=== PATIENT | female | born 1955 | race Caucasian/White ===

== ENCOUNTER 2022-07-20 09:00 | Outpatient (CLI) | payer MEDICARE, BC, SELFPAY ==
[2022-07-20 13:34] LABS: Chloride* 100 mmol/L (96-114); Potassium* 4.8 mmol/L (3.6-5.1); Sodium* 135 mmol/L (135-149)
[2022-07-20 13:35] LABS: Basophils Absolute Auto 0.06 K/uL (0.00-0.30); Basophils Percent Auto 1.1 % (0.0-3.0); Eosinophils Percent Auto 3.7 % (0.0-7.0); Hemoglobin* 14.1 gm/dL (12.0-16.0); Lymphocytes Absolute Auto 1.94 K/uL (0.90-2.90); Lymphocytes Percent Auto 35.7 % (20-44); Mean Corpuscular HGB Conc 33 gm/dL (32-36); Mean Corpuscular Hemoglobin 29 pg (26-34); Mean Corpuscular Volume 89 fL (80-100); Monocytes Percent Auto 13.3 % (0.0-11.0); Neutrophils Absolute Auto 2.51 K/uL (1.7-7.0); Neutrophils Percent Auto 46.2 % (42.0-72.0); Platelet Count* 207 K/uL (140-440); RDW Coefficient of Variation % 12.8 % (11.5-15.5); Red Blood Count 4.84 m/uL (4.00-5.20); White Blood Count* 5.43 K/uL (4.50-11.00)
[2022-07-20 13:37] LABS: Blood Urea Nitrogen* 18 mg/dL (7-30); Carbon Dioxide* 31 mmol/L (20-32); Cholesterol* 281 mg/dL (90-199); Creatinine* 0.6 mg/dL (0.5-1.5); Estimated Glomerular Filt Rate 98 ml/min; Glucose* 97 mg/dL (60-115)
[2022-07-20 13:38] LABS: Calcium* 9.5 mg/dL (8.4-10.6); HDL Cholesterol* 82 mg/dL (>=50); LDL Cholesterol Calculated 177 mg/dL (<100); Triglycerides* 110 mg/dL (40-149)
[2022-07-20 13:44] LABS: Slide Review Reflex No
== END 2022-07-20 09:01 | disposition home or self-care (01) ==
PROVIDERS: PCP Nurse Practitioner Family; Visit Provider Nurse Practitioner Family
DX: Z01.818 Encounter for other preprocedural examination (principal); E78.5 Hyperlipidemia, unspecified
CPT/HCPCS: 80048; 80061; 85025

== ENCOUNTER 2023-05-17 10:52 | Outpatient (CLI) | payer MEDICARE, BC, SELFPAY ==
--- OUTSIDE RECORDS SUMMARY | 2023-05-17 11:03 | XMS_ITS | Clinical Summary ---
Author Name Unknown Organization [facility] Address [address] Care Team Providers Care Insurance Office Manager Name Role Phone Michelle Kolb NP Primary Care Provider [phone] Allergies Active Allergy Reactions Criticality Noted Date Comments [employer] [place] *Unknown - Follow up needed 08/04/19 23 Flaxseed *Unknown - Follow up needed 08/04/19 23 Shrimp *Unknown - Follow up needed 08/04/19 23 Tree Pollen-Red Maple *Unknown - Follow up needed 08/03/2022 Medications Medication Sig Dispensed Refills Start Date End Date Status SUMAtriptan (IMITREX) 100 mg tablet Take 100 mg by mouth every 2 hours if needed for Migraine. Max dose: 200mg per 24 hrs. 0 Active CHOLECALCIFEROL, VITAMIN D3, (VITAMIN D3 ORAL) Take by mouth. Weekly , PRN wintertime 0 Active MULTIVITAMIN ORAL Take by mouth. PO daily 0 Active VITAMIN E ACETATE (VITAMIN E ORAL) Take by mouth. PO daily 0 Active ascorbic acid, vitamin C, (VITAMIN C) 1,000 mg tablet Take 1 Tab by mouth. 0 05/06/2010 Acti ve b complex vitamins (VITAMIN B COMPLEX) capsule Take 1 Tab by mouth. 0 05/07/2010 Active HYDROcodone-acetam inophen (NORCO) 5-325 mg per tabletIndications: Melanoma of face (HC),Dysplastic nevus of face Take 1-2 Tablets by mouth every 4 hours if needed for Pain. Max acetaminophen dose: 4000 mg in 24 hrs. 15 Tablet 0 08/04/2022 Active Active Problems Problem Noted Date Diagnosed Date Melanoma in situ of cheek 10/12/2022 Melanoma of face 08/04/2022 Dysplastic nevus of face 08/04/2022 Social History Tobacco Use Types Packs/Day Years Used Date Smoking Tobacco: Never Smokeless Tobacco: Never Alcohol Use Standard Drinks/Week Comments Yes 0 (1 standard drink = 0.6 oz pur e alcohol) Sex and Gender Information Value Date Recorded Sex Assigned at Not on file Gender Identity Not on file Sexual Orientation Not on file Obstetrics History Last Filed Vital Signs Vital Sign Reading Time Taken Comments Blood Pressure 151/91 10/12/2022 9:30 AM CDT Pulse 63 10/12/2022 9:30 AM CDT Temperature 36.1 ??C (97 ??F) 10/12/2022 9:30 AM CDT Respiratory Rate 20 10/12/2022 9:30 AM CDT Oxygen Saturation 95% 10/12/2022 9:30 AM CDT Inhaled Oxygen Concentration - - Weight 60.9 kg (134 lb 3.2 oz) 10/12/2022 6:23 A M CDT Height 165.1 cm (5' 5) 10/12/2022 6:23 AM CDT Body Mass Index 22.33 10/12/2022 6:23 AM CDT Plan of Treatment Health Maintenance Due Date Last Done Comments Tdap 1965 Depression screening for age 12+ 1966 Hepatitis C screening for ag e 18-79 1972 Tetanus booster 1974 Colonoscopy through age 75 1999 Lipids for age 45-75 1999 Mammogram for age 45-75 1999 Zoster (shingles) series for age 50+ (1 of 2) 2004 DEXA/DXA scan for age 65+ 2019 Pneumococcal series for age 65+ (1 of 1 - PCV) 2019 BMI (ht and wt on same day) for age 18+ 04/11/2020 04/11/2019 COVID-19 vaccine series (2022- season) 2022 01/15/2022, 07/21/2021, 02/01/2021, Additional history exists Influenza for age 65+ 12/03/2022 Advance Directives Latest Code Status on File Code Status Date Activated Date Inactivated Comments Full Code 10/12/2022 5:51 AM 10/12/2022 1:36 PM Question Answer Comments Code Status Discussion: Other not disc ussed Code Status History Code Status Date Activated Date Inactivated Comments Full Code 08/04/2022 8:25 AM 08/04/2022 6:39 PM Question Answer Comments Code Status Discussion: Other not disc ussed Full Code 05/26/2015 7:45 AM 05/26/2015 12:51 PM Care Teams Insurance Office Manager Relationship Specialty Start Date End Date Michelle Kolb NP [address] [place] [address] PCP - General Emergency Medicine 07/15/22
== END 2023-05-17 10:53 | disposition home or self-care (01) ==
PROVIDERS: PCP Nurse Practitioner Family; Visit Provider Nurse Practitioner Family
DX: Z00.00 Encounter for general adult medical examination without abnormal findings (principal); E78.5 Hyperlipidemia, unspecified; M85.80 Other specified disorders of bone density and structure, unspecified site; Z13.0 Encounter for screening for diseases of the blood and blood-forming organs and certain disorders involving the immune mechanism; Z13.228 Encounter for screening for other metabolic disorders
CPT/HCPCS: 80053; 80061; 85025

== ENCOUNTER 2023-08-10 12:44 | Outpatient (CLI) | payer MEDICARE, BC, SELFPAY ==
--- OUTSIDE RECORDS SUMMARY | 2023-08-10 12:48 | XMS_ITS | Clinical Summary ---
Author Name Unknown Organization [facility] Address [place], [place] [address] Care Team Providers Care Temperer Name Role Phone Michelle Kolb NP Primary Care Provider [phone]- [phone] Allergies Active Allergy Reactions Criticality Noted Date Comments [place] *Unknown - Follow up needed 08/04/19 23 [...] Migraine. Max dose: 200mg per 24 hrs. Active CHOLECALCIFEROL, VITAMIN D3, (VITAMIN D3 ORAL) Take by mouth. Weekly , PRN wintertime Active MULTIVITAMIN ORAL Take by mouth. PO daily Active VITAMIN E ACETATE (VITAMIN E ORAL) Take by mouth. PO daily Active ascorbic acid, vitamin C, (VITAMIN C) 1,000 mg tablet Take 1 Tab by mouth. 05/06/2010 Acti ve b complex vitamins (VITAMIN B COMPLEX) capsule Take 1 Tab by mouth. 05/07/2010 Active HYDROcodone-acetam inophen (NORCO) 5-325 mg per tabletIndications: Melanoma of face (HC),Dysplastic nevus of face Take 1-2 Tablets by mouth every 4 hours if needed for Pain. Max acetaminophen dose: 4000 mg in 24 hrs. 15 Tablet 08/04/2022 Active Active Problems Problem Noted Date [...] age 18+ 04/11/2020 04/11/2019 COVID-19 vaccine series ( - 2022- season) 2022 01/15/2022, 07/21/2021, 02/01/2021, Additional history exists Influenza for age 65+ 12/04/2023 Advance Directives * Full Code (Latest Code Status on File) Date Activated Date Inactivated Comments 10/12/2022 5:51 AM 10/12/2022 1:36 PM Question Answer Comments Code Status Discussion: Other not disc ussed * Full Code Date Activated Date Inactivated Comments 08/04/2022 8:25 AM 08/04/2022 6:39 PM Question Answer Comments Code Status Discussion: Other not disc ussed * Full Code Date Activated Date Inactivated Comments 05/26/2015 7:45 AM 05/26/2015 12:51 PM Care Teams Temperer Relationship Specialty Start Date End Date Michelle Kolb SMUTTER [address] [place] [address] PCP - General Emergency Medicine 07/15/22
--- NOTE | 2023-08-10 13:00 | MM_ITS ---
Patient: AUBREY SIMONS Facility:?[facility] Patient ID:?[id number] Site Patient ID:?[id number] Site :?[id number] Study:?XRay-Breast Bilateral 3D W/CAD-08/10/2023 1:07:48 PM Ordering Physician:Michelle Alexander Final Report: BILATERAL SCREENING MAMMOGRAM WITH COMPUTER-AIDED DETECTION AND TOMOSYNTHESIS TECHNIQUE: CC and MLO views were obtained. These mammographic images have been obtained using full-field digital technique. These mammographic images were interpreted with the benefit of computer-aided detection. Breast Tomosynthesis was used in this interpretation. COMPARISON FILM: 07/30/21, 07/15/20. FINDINGS: There are scattered areas of fibroglandular density. IMPRESSION: There is no radiographic evidence for malignancy. ASSESSMENT: BI-RADS Category 1: Negative RECOMMENDATION: Routine screening mammogram in 1 year. A lay language report of this examination will be provided to the patient. Richard West M.D. Diagnostic Radiologist [email or web address] SHLOMO/sp R& Transcribed: 7:53 p.m. SP/Dictated by: Richard West MD @ 08/11/2023 8:45:00 AM Signed by:?Richard West MD @08/11/2023 8:30:00 PM (Electronic Signature)
--- NOTE | 2023-08-10 13:30 | XR_ITS ---
Patient: AUBREY SIMONS Facility:?[facility] Patient ID:?[id number] Site Patient ID:?[id number] Site :?[id number] Study:?DEXA-Bone Density -08/10/2023 2:03:41 PM Ordering Physician:CONSTANCE Final Report: DXA BONE MINERAL DENSITY STUDY Current height (in): 65.5. Weight (lb): 135.0. Menopause age: 54. Ethnicity: White. Reason for exam: Osteopenia. 1. Have you had a previous hip or vertebral fracture? No. 2. Have you had any fractures during your adult life which did not result from significant trauma (e.g., auto accident)? o. 3. Did either of your parents have a hip fracture? No. 4. Do you smoke? No. 5. Have you ever taken Glucocorticoids? No. 6. Do you have rheumatoid arthritis? No. 7. Do you have secondary osteoporosis? No. 8. Do you drink 3 or more alcoholic drinks per day? No. 9. Are you being treated for osteoporosis? No. 10. Have you ever taken any of the following medications: Actonel, Evista, Fosamax, Miacalcin, Reclast, Boniva, Forteo, HRT (i.e. estrogen/hormone therapy), Protelos, Prolia, Vitamin D, Calcium, other ? please specify. ANSWER: Yes, calcium. 11. Do you have any of the following medical conditions: Anorexia or bulimia, asthma or emphysema, end stage renal disease, hyperparathyroidism, any seizure disorders, cancer, inflammatory bowel diseases, hysterectomy, other ? please specify. ANSWER: Yes, cancer. 12. What was your maximum height (inches)? 66.5. 13. Do you perform weight bearing exercise regularly? Yes. 14. Do you regularly consume dairy products? No. 15. Do you drink caffeinated beverages? Yes. 16. At what age did your period start? 12. 17. Are you premenopausal? No. 18. How many full-term pregnancies have you had? 3. 19. Have you ever missed your period for more than 6 months in a row (not including or menopause)? No. TECHNIQUE: Bone mineral density study was performed using the [employer]. FINDINGS: The results of the study expressed as bone mineral density (BMD) are as follows: Lumbar spine L1 to L4: BMD: 1.001 g/cm2. T-score: -0.4. Z-score: 1.6 Neck Left: BMD: 0.634 g/cm2. T-score: -1.9. Z-score: -0.2 Right: BMD: 0.636 g/cm2. T-score: -1.9. Z-score: -0.2 Total Left: BMD: 0.788 g/cm2. T-score: -1.3. Z-score: 0.2 Right: BMD: 0.754 g/cm2. T-score: -1.5. Z-score: -0.1 IMPRESSION: Normal bone density. FRAX 10-year Fracture Risk Major Osteoporotic Fracture: 11 percent Hip Fracture: 2.0 percent Reported Risk Factors: [place] () Neck BMD = 0.634, BMI = 22.1 Dino Alvarez M.D. Diagnostic Radiologist [email or web address] FOX/santo: D& Transcribed: 3:33 pm DW/Dictated by: Dino Alvarez MD @ 08/10/2023 2:58:00 PM Signed by:Hitesh Alvarez MD @08/11/2023 7:38:13 AM (Electronic Signature)
== END 2023-08-10 12:45 | disposition home or self-care (01) ==
LOC: MAMMO 12:46
PROVIDERS: PCP Nurse Practitioner Family; Visit Provider Nurse Practitioner Family
DX: Z12.31 Encounter for screening mammogram for malignant neoplasm of breast (principal); M85.80 Other specified disorders of bone density and structure, unspecified site; Z78.0 Asymptomatic menopausal state
CPT/HCPCS: 77063; 77067; 77080

== ENCOUNTER 2023-09-24 15:36 | Emergency (ER) | payer MEDICARE, BC, SELFPAY ==
[2023-09-24 15:38] VITALS: BP 148/85; PULSE 71; RESP 16; TEMP 36.3; O2SAT 96; BMI 22.1
--- NOTE | 2023-09-24 15:52 | CRLHL7_ITS ---
For Patients: As a result of the Century Cures Act, medical imaging exams and procedure reports are released immediately into your electronic medical record. You may view this report before your referring provider. If you have questions, please contact your health care provider. INDICATION: Fall. TECHNIQUE: CT of the head without contrast. Coronal and sagittal reformats are included. COMPARISON: None. FINDINGS: No acute intracranial hemorrhage. No mass effect or midline shift. No hydrocephalus or extra-axial collections. Scattered white matter hypoattenuation, typical for chronic microvascular ischemic change. No acute osseous abnormalities. Mastoid air cells and paranasal sinuses are clear. Normal soft tissues. IMPRESSION: IMPRESSION: 1. No acute intracranial abnormalities. Please note that all CT scans at this facility use dose modulation, iterative reconstruction, and/or weight-based dosing when appropriate to reduce radiation dose to as low as reasonably achievable. Dictated by Joaquin Randle MD @ 09/24/2023 4:18:46 PM (Electronically Signed)
--- NOTE | 2023-09-24 15:52 | CRLHL7_ITS ---
For Patients: As a result of the Cures Act, medical imaging exams and procedure reports are released immediately into your electronic medical record. You may view this report before your referring provider. If you have questions, please contact your health care provider. INDICATION: Fall. TECHNIQUE: CT of the cervical spine without contrast. Coronal and sagittal reformats are included. COMPARISON: None. FINDINGS: No acute fracture or traumatic malalignment of the cervical spine. Craniocervical junction alignment is maintained. Slight cervical kyphosis. Grade 1 anterolisthesis C4-5. Moderate disc degeneration C5-6 and C6-7. Mild disc degeneration elsewhere. Scattered uncovertebral/facet arthrosis with low-grade neural foraminal stenosis. No high grade spinal canal stenosis as far as visualized. Imaged intracranial structures, cervical and paraspinous soft tissues are normal in appearance. The visualized pulmonary apices are clear. IMPRESSION: 1. No acute fracture or traumatic malalignment of the cervical spine. Please note that all CT scans at this facility use dose modulation, iterative reconstruction, and/or weight-based dosing when appropriate to reduce radiation dose to as low as reasonably achievable. Dictated by Joaquin Randle MD @ 09/24/2023 4:23:49 PM (Electronically Signed)
--- OUTSIDE RECORDS SUMMARY | 2023-09-24 16:17 | XMS_ITS | Clinical Summary ---
Author Organization [email or web address] Address [place], [place] [address] Care Team Providers Care Canadian Bacon Tier Name Role Phone Michelle Kolb SPINNER OPERATOR Primary Care Provider [phone] Allergies Active Allergy Reactions Criticality Noted Date Comments [place] *Unknown - Follow up needed 08/04/19 23 [...] 7:45 AM 05/26/2015 12:51 PM Care Teams Canadian Bacon Tier Relationship Specialty Start Date End Date Michelle Kolb SPINNER OPERATOR [address] [place] [address] PCP - General Emergency Medicine 07/15/22
--- OUTSIDE RECORDS SUMMARY | 2023-09-24 16:17 | XMS_ITS | Continuity of Care Document ---
Author Organization [facility] Address [address] [address] [place] [address] Phone Care Team Providers Care Cash Crop Farmer Name Role Phone Jeison Garsia DO Unavailable Unavailable Allergies, Adverse Reactions, Alerts Substance Reaction Status Criticality No Known Drug Allergies Active No I nformation Medications Medication Instructions Dosage Effective Dates (start - stop) Status Comments sumatriptan 100 mg tablet take 1 tablet by oral route after onset of migraine; may repeat after 2 hours if headache returns,not to exceed 200mg in 24hrs as needed 100 MG - Active Procedures Procedure Date Stool Kits Given Offic/outpt E&m New Mod-hi Routine Serum Collection Advance Directives Directive Yes / No Effective Date File Name No Information Encounters Encounter Description Practice Location Reason(s) For Visit Diagnoses Date Provider Providers Copied on Encounter [facility], [address] [address], [place], [place], [id number], [place] [phone] [facility] No Information 3 Ady Walter. [address], [id number], [place]. tel:[phone] [facility], [address] [address], [place], [place], [id number], [place] tel:[phone] [facility] No Information 2 Fran Duffy. [address] [facility], [address], [id number], [place]. tel:[phone] Referring Provider: Referral Self, USE FOR SELF REFERRALS. Offic/outpt E&m New Mod-hi [facility], [address] [address], [place], [place], [id number], tel:[phone] [facility] GI Symptoms or Concerns (chief complaint) Diarrhea, unspecified type Sep- 2 Fran Duffy. [address] [facility], [facility] [address], [place], [id number], . tel:[phone] Referring Provider: Michelle Kolb NP M, [address] [place], [address]. tel:[phone] [facility], [address] [address], [place], [place], [id number], [place] tel:[phone] [facility] No Information 2 Lazara Avelar. [address] [facility], [facility] [address], [place], [id number], . tel:[phone] Family History Family Member Type Diagnosis Age At Onset Brother Problem Alive and well Father Problem COPD Father Problem Lung cancer Sister Problem Alive and well Immunizations Vaccine Date Status Comments SARS-COV-2 (COVID-19) vaccin e, mRNA, spike protein, LNP, preservative free, 100 mcg/0.5mL dose or 50 mcg/0.25mL dose administered Note: [facility] bi -directional interface ; Source: Other Registry zoster vaccine recombinant administered N ote: [facility] bi-directional interface ; Source: Other Registry SARS-COV-2 (COVID-19) vaccin e, mRNA, spike protein, LNP, preservative free, 100 mcg/0.5mL dose or 50 mcg/0.25mL dose administered Note: [facility] bi -directional interface ; Source: Other Registry influenza, high-dose seasona l, quadrivalent, .7mL dose, preservative free administered Note: [facility] bi-direct ional interface ; Source: Other Registry tetanus toxoid, reduced diphtheria toxoid, and acellular pertussis vaccine, adsorbed administered Note: [facility] b i-directional interface ; Source: Other Registry Pneumovax 23 administered Note: [facility] bi-d irectional interface ; Source: Other Registry SARS-COV-2 (COVID-19) vaccin e, mRNA, spike protein, LNP, preservative free, 100 mcg/0.5mL dose or 50 mcg/0.25mL dose administered Note: [facility] bi -directional interface ; Source: Other Registry influenza, high dose seasona l, preservative-free administered Note: [facility] bi-direct ional interface ; Source: Other Registry Afluria Qd administered Note: [facility] bi-directional interface ; Source: Other Registry Afluria Qd administered Note: [facility] bi-directional interface ; Source: Other Registry Afluria Qd administered Note: [facility] bi-directional interface ; Source: Other Registry Afluria Qd administered Note: [facility] bi-directional interface ; Source: Other Registry Influenza administered Note: [facility] bi-d irectional interface ; Source: Other Registry influenza virus vaccine, unspecified formulation administered Note: [facility] bi-di rectional interface ; Source: Other Registry influenza virus vaccine, unspecified formulation administered Note: [facility] bi-di rectional interface ; Source: Other Registry Influenza, seasonal, injectable administe red Note: [facility] bi- directional interface ; Source: Other Registry Influenza, seasonal, injectable administe red Note: [facility] bi- directional interface ; Source: Other Registry typhoid vaccine, parenteral, other than acetone-killed, dried administered Note: [facility] bi- directional interface ; Source: Other Registry Influenza, seasonal, injectable administe red Note: [facility] bi- directional interface ; Source: Other Registry tetanus toxoid, reduced diphtheria toxoid, and acellular pertussis vaccine, adsorbed administered Note: [facility] b i-directional interface ; Source: Other Registry Influenza, seasonal, injectable administe red Note: [facility] bi- directional interface ; Source: Other Registry Influenza, seasonal, injecta ble, preservative free administered Note: [facility] bi-direct ional interface ; Source: Other Registry Influenza, seasonal, injectable administe red Note: [facility] bi- directional interface ; Source: Other Registry typhoid vaccine, parenteral, other than acetone-killed, dried administered Note: [facility] bi- directional interface ; Source: Other Registry hepatitis B vaccine, unspeci fied formulation administered Note: [facility] bi-direct ional interface ; Source: Other Registry Havrix administered Note: [facility] bi-d irectional interface ; Source: Other Registry hepatitis B vaccine, unspeci fied formulation administered Note: [facility] bi-direct ional interface ; Source: Other Registry hepatitis B vaccine, unspeci fied formulation administered Note: [facility] bi-direct ional interface ; Source: Other Registry poliovirus vaccine, inactivated administe red Note: [facility] bi- directional interface ; Source: Other Registry Havrix administered Note: [facility] bi-d irectional interface ; Source: Other Registry Payers Payer name Insurance type Covered constitution party ID Authoriza tion(s) No Information Social History Type Description Quantity Date Captured Comments Alcohol Use Details Unknown Caffeine Use Details Unknown Tobacco Use Status No Information Smoking Status No Information Sex Female Chief Complaint And Reason For Visit No Information Reason For Referral Reason For Referral No Information Plan Of Treatment Date Type Action Status Referral Ordered: Colonoscopy Appointment date/timeframe: First Available ordered History Of Present Illness Encounter Date Complaint History Of Prese nt Illness GI Symptoms or Concerns This is a 66-year-old female, who is seen today at the request of Michelle Kolb NP for the evaluation of a change in her bowel habits with chronic diarrhea since July.When she was in [place] in mid July, she began to have some looser bowel movements. About one week later, she began having diarrhea, cramping/abdominal discomfort, urgency, and even some episodes of incontinence. She can have 1-3 stools per day. After she was having some nocturnal symptoms. She gets cramping now every once in a while. She has lost about 8 pounds. There is no nausea or vomiting. She was using Excedrin for migraine headaches up until she began to feel unwell.No ill contacts. No recent antibiotic use. No new medications.PAST MEDICAL HISTORYShe has a history of eosinophilic esophagitis diagnosed about 10 years ago. She has had dilation in the past. This is related to shrimp, flaxseed, almonds, maple tree pollen, and symptoms are worsened in the spring. She does not take any pharm Functional Status Date Functional Assessmen t No Information Instructions Date Instruction Additional Infor frannie -Basic labs today, c eliac panel, thyroid panel -Stool tests to rule out infections -Colonoscopy if the above workup is normal to rule out colitis such as inflammatory colitis or microscopic colitis-It is OK to use a small amount of Imodium or pepto-bismol as needed for symptom management. You can continue probiotics and digestive enzymes for now if you think these are helping -Make a follow up visit after the above workup is complete to review findings/discuss next steps Related to Diarrhea, unspecified type Assessments Type Assessment Date No Information Patient Care Teams Name Effective Dates (start - stop) Status Members No Information
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
== END 2023-09-24 16:54 | disposition home or self-care (01) ==
PROVIDERS: Emergency Provider Student in an Organized Health Care Education/Training Program; PCP Nurse Practitioner Family
DX: S09.90XA Unspecified injury of head, initial encounter (principal); W18.30XA Fall on same level, unspecified, initial encounter
CPT/HCPCS: 70450; 72125; 99282; 99283; 99285

== ENCOUNTER 2023-10-18 09:00 | Outpatient (CLI) | payer MEDICARE, BC, SELFPAY | END 2023-10-18 09:01 | disposition home or self-care (01) | PROVIDERS: PCP Nurse Practitioner Family; Visit Provider Nurse Practitioner Family | DX: E78.5 Hyperlipidemia, unspecified (principal) | CPT/HCPCS: 80061; 80076 ==

== ENCOUNTER 2024-07-31 09:11 | Outpatient (CLI) | payer MEDICARE, BC, SELFPAY | END 2024-07-31 09:12 | disposition home or self-care (01) | PROVIDERS: PCP Nurse Practitioner Family; Visit Provider Nurse Practitioner Family | DX: E78.5 Hyperlipidemia, unspecified (principal) | CPT/HCPCS: 80053; 80061; 85025 ==

== ENCOUNTER 2024-11-06 13:09 | Outpatient (CLI) | payer MEDICARE, BC, SELFPAY ==
--- NOTE | 2024-11-06 13:20 | CRLHL7_ITS ---
For Patients: As a result of the Century Cures Act, medical imaging exams and procedure reports are released immediately into your electronic medical record. You may view this report before your referring provider. If you have questions, please contact your health care provider. INDICATION: BILATERAL SCREENING MAMMOGRAM, ASYMPTOMATIC 69 Y/O FEMALE COMPARISON: 08/10/2023, 07/30/2021 TECHNIQUE: Digital mammogram in CC and MLO projections including computer-aided detection (CAD) and tomosynthesis. BREAST COMPOSITION: There are scattered areas of fibroglandular density. FINDINGS: No suspicious findings. ASSESSMENT: BI-RADS 1 Negative RECOMMENDATION: Annual screening mammogram. A lay language report of this examination will be provided to the patient. Dictated by: Richard West MD @ 11/07/2024 08:52:19 (Electronically Signed)
== END 2024-11-06 13:10 | disposition home or self-care (01) ==
LOC: MAMMO 13:10
PROVIDERS: PCP Nurse Practitioner Family; Visit Provider Nurse Practitioner Family
DX: Z12.31 Encounter for screening mammogram for malignant neoplasm of breast (principal)
CPT/HCPCS: 77063; 77067